=== PATIENT | female | born 1995 | race Caucasian/White ===

== ENCOUNTER 2022-01-10 19:37 | Emergency (ER) | payer BC ==
[~2022-01-10] VITALS: Ht 157.5 cm; Wt 62.0 kg
[2022-01-10 19:50] VITALS: BP 109/67
[2022-01-10] MEDS ORDERED: LIDO1ADH23 TP (21:38)
[2022-01-10] MEDS ORDERED: IBUP-2028 MT (21:38)
[2022-01-10] MEDS ORDERED: TOPUD PO (21:38)
== END 2022-01-10 21:51 | disposition home or self-care (01) ==
LOC: ER 19:37
DX: M25.532 Pain in left wrist (principal); M79.601 Pain in right arm; M54.89 Other dorsalgia; G89.11 Acute pain due to trauma; R07.81 Pleurodynia; V03.10XA Pedestrian on foot injured in collision with car, pick-up truck or van in traffic accident, initial encounter; Y93.01 Activity, walking, marching and hiking; Y92.480 Sidewalk as the place of occurrence of the external cause
CPT/HCPCS: 99283